=== PATIENT | male | born 1940 | race Caucasian/White ===

== ENCOUNTER 2017-02-19 14:03 | Inpatient (IN) | payer MEDICARE, BC ==
[2017-02-19 15:10] VITALS: BP 136/75
[2017-02-19] MEDS ORDERED: Maalox 30 mL Cup PO PRN (20:51)
[2017-02-19] MEDS ORDERED: Magnesium Hydroxide (MOM) 30 mL UDC PO PRN (20:51)
[2017-02-20] MEDS: Multivitamin Tab PO SCH (09:00)
--- NOTE | 2017-02-20 11:54 | History and Physical ---
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 Pertinent Hx GI: Report: No Pertinent Hx Psych: Report: Other (Accordint to information in cahrt patient has having this symptoms before.) Musculoskeletal: Report: No Pertinent Hx Rheumatologic: Report: No pertinent Hx Infectious Disease: Report: No Pertinent Hx Renal/: Report: No Pertinent Hx Endocrine: Report: No Pertinent Hx Dermatology: Report: No Pertinent Hx - Past Surgical History Past Surgical History: No pertinent Hx Social History Smoke: No Alcohol: None Drugs: None Lives: With Family Domestic Violence: Negative - Allergies Allergies/Adverse Reactions: Allergies Allergy/AdvReac Type Severity Reaction Status Date / Time No Known Allergies Allergy Verified 02/19/17 15:10 Review of Systems - Review of Systems Constitutional: Report: No Significant Eyes: Report: No Significant ENT: Report: No Significant Respiratory: Report: No Significant Cardiovascular: Report: No Significant Gastrointestinal: Report: No Significant Genitourinary: Report: No Significant Musculoskeletal: Report: No Significant Skin: Report: No Significant Neurological: Report: No Significant Physical Exam - Physical Exam HEENT: Report: Ears Nose Throat within normal limits Neck: Report: Within normal limits Cardiovascular Systems: Report: Regular, Rate and Rhythm Respiratory: Report: Breath Sounds are within normal limits Abdomen: Report: Non-tender to palpation Back: Report: Inspection of back is within normal limits. Extremities: Report: Non-tender to palpation. Skin: Report: Warm, Dry, Other (There are 2 small cuts in left hand and scoriation in left elbow. ) Neuro/Psych: Report: Disoriented to name time or place, Depressed affect - Lab Results All Lab Results last 24 hours: Laboratory Results - last 24 hr 02/19/17 15:56 POC Glucose 100 - Assessment Assessment: Patient is awake, alert, confused, not oriented. Dx; Suicidal ideation - Plan Plan: Patient is under psychiatric care. Labs will be done.
[2017-02-21 06:56] LABS: % BASOPHILS 0.5 % (0.0-2.0); % EOSINOPHILS 0.9 % (0.0-5.0); % MONOCYTES 10.9 % (2.0-10.0); % NEUTROPHILS 74.7 % (40.0-80.0); HEMATOCRIT 45.6 % (41.0-60); MEAN CELL VOLUME 96.2 fl (80-99); MEAN CORPUSCULAR HEMOGLOBIN 31.7 pg (27.0-31.0); NEUTROPHILE ABSOLUTE 7.6 Th/cmm (1.8-8.0); PLATELET COUNT 162 Th/cmm (150-400); RED BLOOD COUNT 4.73 Mil/cmm (3.80-5.80); RED CELL DISTRIBUTION WIDTH 13.2 % (11.5-20.0); WHITE BLOOD COUNT 10.2 Th/cmm (4.8-10.8)
[2017-02-21 07:13] LABS: ALB/GLOB RATIO 1.7 (1.0-1.8); ALKALINE PHOSPHATASE 56 U/L (34-104); ANION GAP 7.2 (7.0-16.0); BUN - UREA NITROGEN 15 mg/dL (7-25); BUN/CREATININE RATIO 18.8; CALCIUM SERUM 9.8 mg/dL (8.6-10.3); CARBON DIOXIDE 31.8 mEq/L (21.0-31.0); CHLORIDE 103 mEq/L (98-107); CREATININE - SERUM 0.8 mg/dL (0.7-1.3); GLUCOSE 104 mg/dL (70-105); SGOT 22 U/L (13-39); SGPT/ALT 11 U/L (7-52); SODIUM SERUM 138 mEq/L (136-145)
[2017-02-21] MEDS: Multivitamin Tab PO SCH (08:47)
--- NOTE | 2017-02-21 09:09 | General Progress Note ---
Subjective - Review of Systems Service Date: 02/21/17 Subjective: I am fine Objective - Results Result Diagrams: 02/21/17 06:35 02/21/17 06:35 Recent Labs: Laboratory Last Values WBC 10.2 Th/cmm (4.8-10.8) 02/21/17 06:35 RBC 4.73 Mil/cmm (3.80-5.80) 02/21/17 06:35 Hgb 15.0 gm/dL (12-16) 02/21/17 06:35 Hct 45.6 % (41.0-60) 02/21/17 06:35 MCV 96.2 fl (80-99) 02/21/17 06:35 MCH 31.7 pg (27.0-31.0) H 02/21/17 06:35 MCHC Differential 33.0 pg (28.0-36.0) 02/21/17 06:35 RDW 13.2 % (11.5-20.0) 02/21/17 06:35 Plt Count 162 Th/cmm (150-400) 02/21/17 06:35 MPV 9.0 fl 02/21/17 06:35 Neutrophils % 74.7 % (40.0-80.0) 02/21/17 06:35 Lymphocytes % 13.0 % (20.0-50.0) L 02/21/17 06:35 Monocytes % 10.9 % (2.0-10.0) H 02/21/17 06:35 Eosinophils % 0.9 % (0.0-5.0) 02/21/17 06:35 Basophils % 0.5 % (0.0-2.0) 02/21/17 06:35 Sodium 138 mEq/L (136-145) 02/21/17 06:35 Potassium 4.0 mEq/L (3.5-5.1) 02/21/17 06:35 Chloride 103 mEq/L (98-107) 02/21/17 06:35 Carbon Dioxide 31.8 mEq/L (21.0-31.0) H 02/21/17 06:35 Anion Gap 7.2 (7.0-16.0) 02/21/17 06:35 BUN 15 mg/dL (7-25) 02/21/17 06:35 Creatinine 0.8 mg/dL (0.7-1.3) 02/21/17 06:35 Est GFR ( Amer) TNP 02/21/17 06:35 Est GFR (Non-Af Amer) TNP 02/21/17 06:35 BUN/Creatinine Ratio 18.8 02/21/17 06:35 Glucose 104 mg/dL (70-105) 02/21/17 06:35 POC Glucose 100 MG/DL (70 - 105) 02/19/17 15:56 Calcium 9.8 mg/dL (8.6-10.3) 02/21/17 06:35 Total Bilirubin 1.0 mg/dL (0.3-1.0) 02/21/17 06:35 AST 22 U/L (13-39) 02/21/17 06:35 ALT 11 U/L (7-52) 02/21/17 06:35 Alkaline Phosphatase 56 U/L (34-104) 02/21/17 06:35 Total Protein 6.7 gm/dL (6.0-8.3) 02/21/17 06:35 Albumin 4.2 gm/dL (4.2-5.5) 02/21/17 06:35 Globulin 2.5 gm/dL 02/21/17 06:35 Albumin/Globulin Ratio 1.7 (1.0-1.8) 02/21/17 06:35 TSH 2.19 uIU/ml (0.34-5.60) 02/21/17 06:35 - Physical Exam Vitals and I&O: Vital Signs Temp 98.2 F 02/21/17 07:05 Pulse 89 02/21/17 07:05 Resp 20 02/21/17 07:05 BP 132/83 02/21/17 07:05 Pulse Ox 99 02/21/17 07:05 Intake & Output 02/20/17 02/21/17 02/21/17 18:59 06:59 18:59 Intake Total 1200 120 Balance 1200 120 Intake: Oral 1200 120 Other: # Voids 3 # Bowel Movements 1 Active Medications: Current Medications Acetaminophen (Tylenol) 650 mg PO Q4HR PRN PRN Reason: Mild Pain / Temp above 100 Stop: 04/20/17 20:50 Al Hydrox/Mg Hydrox/Simethicone (Maalox) 30 ml PO Q4HR PRN PRN Reason: GI DISTRESS Stop: 04/20/17 20:50 Donepezil HCl (Aricept) 10 mg PO HS PATY Stop: 04/21/17 20:59 Last Admin: 02/20/17 20:50 Dose: 10 mg Escitalopram Oxalate (Lexapro) 10 mg PO DAILY PATY PRN Reason: Protocol Stop: 04/21/17 12:59 Last Admin: 02/21/17 08:47 Dose: 10 mg Lorazepam (Ativan) 0.5 mg PO Q4HR PRN; Protocol PRN Reason: Anxiety Stop: 03/21/17 20:50 Last Admin: 02/20/17 13:09 Dose: 0.5 mg Magnesium Hydroxide (Milk Of Magnesia) 30 ml PO HS PRN PRN Reason: Constipation Multivitamins/Vitamin C (Theragran) 1 tab PO DAILY PATY Stop: 04/21/17 08:59 Last Admin: 02/21/17 08:47 Dose: 1 tab Zolpidem Tartrate (Ambien) 5 mg PO HS PRN PRN Reason: Insomnia Stop: 04/20/17 20:50 General: Alert, Other (confused) HEENT: Atraumatic Neck: Supple Cardiovascular: Regular rate Lungs: Clear to auscultation Abdomen: Bowel sounds, Soft Extremities: Other (No edema) Neurological: Normal gait Skin: Other (warm and ) Psych/Mental Status: Other (Confused not oriented) Assessment/Plan - Assessment Assessment: Patient is awake, alert, confused, not oriented. Dx; Suicidal ideation - Plan Plan: Patient is under psychiatric care. Labs will be done.
--- NOTE | 2017-02-21 16:49 | Psychosocial Evaluation ---
DATE OF SERVICE: JUSTIFICATION FOR HOSPITALIZATION: The patient brought in on a hold, acting aggressively, making threats to kill . CHIEF COMPLAINT: Psychotic decompensation, aggressive behaviors. HISTORY OF PRESENT ILLNESS: A 76-year-old male with apparent history of mental illness, noted to be aggressive, acting strangely, making threats to kill . concerned, called authorities. He was also noted to be suicidal, making statements and threats to cut his own throat. On [id number], the patient is staring blankly, mute, and not speaking with me whatsoever. Staff noting he appears confused, at times noted to be responding to internal stimuli. PAST PSYCHIATRIC HISTORY: Unknown. The patient refusing to speak with me. FAMILY HISTORY: Unknown. The patient refusing to speak with me. SOCIAL HISTORY: Apparently he is , is unclear what his living circumstances are. He has an address in [place], [place]. Unclear drugs, alcohol, or tobacco. MENTAL STATUS EXAMINATION: Stated age, staring blankly, not talking. Mood not answering. Affect flat. Thought processes difficult to assess. Thought content, difficult to assess. Appearing internally preoccupied. He was noted to be suicidal and homicidal. Memory unable to assess. Psychotic symptoms, difficult to fully assess. Poor insight, poor judgment. PROVISIONAL DIAGNOSES: Psychosis, unspecified and mood, unspecified. Under medical, please see full H and P. MEDICATIONS: Reviewed. ESTIMATED LENGTH OF STAY: 5-7 days. ASSESSMENT: The patient requiring inpatient hospitalization, aggressive suicidal or homicidal. PLAN: We will try to increase collateral. TREATMENT PLAN: Includes group as well as milieu therapy. CONDITIONS FOR DISCHARGE: Improved mood, improved affect, better control of his homicidal and suicidal symptoms, better control of any psychotic symptoms. [facility]# [id number]
[2017-02-22] MEDS: Multivitamin Tab PO SCH (08:48)
--- NOTE | 2017-02-22 10:19 | General Progress Note ---
Subjective - Review of Systems Service Date: 02/22/17 Subjective: I am fine Objective - Results Result Diagrams: 02/21/17 06:35 02/21/17 06:35 Recent Labs: Laboratory Last Values WBC 10.2 Th/cmm (4.8-10.8) 02/21/17 06:35 RBC 4.73 Mil/cmm (3.80-5.80) 02/21/17 06:35 Hgb 15.0 gm/dL (12-16) 02/21/17 06:35 Hct 45.6 % (41.0-60) 02/21/17 06:35 MCV 96.2 fl (80-99) 02/21/17 06:35 MCH 31.7 pg (27.0-31.0) H 02/21/17 06:35 MCHC Differential 33.0 pg (28.0-36.0) 02/21/17 06:35 RDW 13.2 % (11.5-20.0) 02/21/17 06:35 Plt Count 162 Th/cmm (150-400) 02/21/17 06:35 MPV 9.0 fl 02/21/17 06:35 Neutrophils % 74.7 % (40.0-80.0) 02/21/17 06:35 Lymphocytes % 13.0 % (20.0-50.0) L 02/21/17 06:35 Monocytes % 10.9 % (2.0-10.0) H 02/21/17 06:35 Eosinophils % 0.9 % (0.0-5.0) 02/21/17 06:35 Basophils % 0.5 % (0.0-2.0) 02/21/17 06:35 Sodium 138 mEq/L (136-145) 02/21/17 06:35 Potassium 4.0 mEq/L (3.5-5.1) 02/21/17 06:35 Chloride 103 mEq/L (98-107) 02/21/17 06:35 Carbon Dioxide 31.8 mEq/L (21.0-31.0) H 02/21/17 06:35 Anion Gap 7.2 (7.0-16.0) 02/21/17 06:35 BUN 15 mg/dL (7-25) 02/21/17 06:35 Creatinine 0.8 mg/dL (0.7-1.3) 02/21/17 06:35 Est GFR ( Amer) TNP 02/21/17 06:35 Est GFR (Non-Af Amer) TNP 02/21/17 06:35 BUN/Creatinine Ratio 18.8 02/21/17 06:35 Glucose 104 mg/dL (70-105) 02/21/17 06:35 POC Glucose 100 MG/DL (70 - 105) 02/19/17 15:56 Calcium 9.8 mg/dL (8.6-10.3) 02/21/17 06:35 Total Bilirubin 1.0 mg/dL (0.3-1.0) 02/21/17 06:35 AST 22 U/L (13-39) 02/21/17 06:35 ALT 11 U/L (7-52) 02/21/17 06:35 Alkaline Phosphatase 56 U/L (34-104) 02/21/17 06:35 Total Protein 6.7 gm/dL (6.0-8.3) 02/21/17 06:35 Albumin 4.2 gm/dL (4.2-5.5) 02/21/17 06:35 Globulin 2.5 gm/dL 02/21/17 06:35 Albumin/Globulin Ratio 1.7 (1.0-1.8) 02/21/17 06:35 TSH 2.19 uIU/ml (0.34-5.60) 02/21/17 06:35 - Physical Exam Vitals and I&O: Vital Signs Temp 97.8 F 02/22/17 06:48 Pulse 90 02/22/17 06:48 Resp 18 02/22/17 06:48 BP 114/72 02/22/17 06:48 Pulse Ox 97 02/22/17 06:48 Intake & Output 02/21/17 02/22/17 02/22/17 18:59 06:59 18:59 Intake Total 1720 120 Balance 1720 120 Intake: Oral 1720 120 Other: # Voids 4 3 # Bowel Movements 0 Active Medications: Current Medications Acetaminophen (Tylenol) 650 mg PO Q4HR PRN PRN Reason: Mild Pain / Temp above 100 Stop: 04/20/17 20:50 Al Hydrox/Mg Hydrox/Simethicone (Maalox) 30 ml PO Q4HR PRN PRN Reason: GI DISTRESS Stop: 04/20/17 20:50 Donepezil HCl (Aricept) 10 mg PO HS PATY Stop: 04/21/17 20:59 Last Admin: 02/21/17 21:06 Dose: 10 mg Escitalopram Oxalate (Lexapro) 10 mg PO DAILY PATY PRN Reason: Protocol Stop: 04/21/17 12:59 Last Admin: 02/22/17 08:48 Dose: 10 mg Lorazepam (Ativan) 0.5 mg PO Q4HR PRN; Protocol PRN Reason: Anxiety Stop: 03/21/17 20:50 Last Admin: 02/22/17 08:48 Dose: 0.5 mg Magnesium Hydroxide (Milk Of Magnesia) 30 ml PO HS PRN PRN Reason: Constipation Multivitamins/Vitamin C (Theragran) 1 tab PO DAILY PATY Stop: 04/21/17 08:59 Last Admin: 02/22/17 08:48 Dose: 1 tab Zolpidem Tartrate (Ambien) 5 mg PO HS PRN PRN Reason: Insomnia Stop: 04/20/17 20:50 General: Alert, Other (confused) HEENT: Atraumatic Neck: Supple Cardiovascular: Regular rate Lungs: Clear to auscultation Abdomen: Bowel sounds, Soft Extremities: Other (No edema) Neurological: Normal gait Skin: Other (warm and ) Psych/Mental Status: Other (Confused not oriented) Assessment/Plan - Assessment Assessment: Patient is awake, alert, confused, not oriented. Dx; Suicidal ideation - Plan Plan: Patient is under psychiatric care. Labs will be done.
--- NOTE | 2017-02-22 15:32 | Progress Notes ---
DATE: SUBJECTIVE: The patient is currently in the hospital, suicidal, homicidal, placed on a hold, on [id number]. He is crying uncontrollably, very tearful "My left me," convinced his left him. I spoke with the today. She is very concerned about him and wants him actually closer to him and wants him out of the hospital [facility]. Apparently, the patient has been declining over the past couple of weeks. Memory worsening over time. Behaviors are becoming more erratic, unruly. He has also been falling. He sees a neurologist. notes he was recently diagnosed with dementia, very difficult to have a reasonable conversation with the patient, he is still fixated about his leaving him, guarded about any SI, but he is being placed on suicide watch at this time because he appears so desperate, hopeless, and is crying uncontrollably. Sleeping fairly well. Needing some prompting. ASSESSMENT: The patient remains symptomatic, crying uncontrollably. Currently on a suicide watch. Staff is moving him to a closer room to the nursing station. PLAN: We will continue to monitor. The patient seems to be confused, disoriented, and there are safety concerns. We will initiate a 14-day hold. Given his ongoing symptoms, there are continued safety concerns. JOB# [id number]
[2017-02-23] MEDS: Multivitamin Tab PO SCH (08:19)
--- NOTE | 2017-02-23 10:48 | General Progress Note ---
Subjective - Review of Systems Service Date: 02/23/17 Subjective: I am fine Objective - Results Result Diagrams: 02/21/17 06:35 02/21/17 06:35 Recent Labs: Laboratory Last Values WBC 10.2 Th/cmm (4.8-10.8) 02/21/17 06:35 RBC 4.73 Mil/cmm (3.80-5.80) 02/21/17 06:35 Hgb 15.0 gm/dL (12-16) 02/21/17 06:35 Hct 45.6 % (41.0-60) 02/21/17 06:35 MCV 96.2 fl (80-99) 02/21/17 06:35 MCH 31.7 pg (27.0-31.0) H 02/21/17 06:35 MCHC Differential 33.0 pg (28.0-36.0) 02/21/17 06:35 RDW 13.2 % (11.5-20.0) 02/21/17 06:35 Plt Count 162 Th/cmm (150-400) 02/21/17 06:35 MPV 9.0 fl 02/21/17 06:35 Neutrophils % 74.7 % (40.0-80.0) 02/21/17 06:35 Lymphocytes % 13.0 % (20.0-50.0) L 02/21/17 06:35 Monocytes % 10.9 % (2.0-10.0) H 02/21/17 06:35 Eosinophils % 0.9 % (0.0-5.0) 02/21/17 06:35 Basophils % 0.5 % (0.0-2.0) 02/21/17 06:35 Sodium 138 mEq/L (136-145) 02/21/17 06:35 Potassium 4.0 mEq/L (3.5-5.1) 02/21/17 06:35 Chloride 103 mEq/L (98-107) 02/21/17 06:35 Carbon Dioxide 31.8 mEq/L (21.0-31.0) H 02/21/17 06:35 Anion Gap 7.2 (7.0-16.0) 02/21/17 06:35 BUN 15 mg/dL (7-25) 02/21/17 06:35 Creatinine 0.8 mg/dL (0.7-1.3) 02/21/17 06:35 Est GFR ( Amer) TNP 02/21/17 06:35 Est GFR (Non-Af Amer) TNP 02/21/17 06:35 BUN/Creatinine Ratio 18.8 02/21/17 06:35 Glucose 104 mg/dL (70-105) 02/21/17 06:35 POC Glucose 100 MG/DL (70 - 105) 02/19/17 15:56 Calcium 9.8 mg/dL (8.6-10.3) 02/21/17 06:35 Total Bilirubin 1.0 mg/dL (0.3-1.0) 02/21/17 06:35 AST 22 U/L (13-39) 02/21/17 06:35 ALT 11 U/L (7-52) 02/21/17 06:35 Alkaline Phosphatase 56 U/L (34-104) 02/21/17 06:35 Total Protein 6.7 gm/dL (6.0-8.3) 02/21/17 06:35 Albumin 4.2 gm/dL (4.2-5.5) 02/21/17 06:35 Globulin 2.5 gm/dL 02/21/17 06:35 Albumin/Globulin Ratio 1.7 (1.0-1.8) 02/21/17 06:35 TSH 2.19 uIU/ml (0.34-5.60) 02/21/17 06:35 - Physical Exam Vitals and I&O: Vital Signs Temp 98.1 F 02/23/17 06:44 Pulse 85 02/23/17 06:44 Resp 20 02/23/17 06:44 BP 130/87 02/23/17 06:44 Pulse Ox 97 02/23/17 06:44 Intake & Output 02/22/17 02/23/17 02/23/17 18:59 06:59 18:59 Intake Total 800 120 Balance 800 120 Intake: Oral 800 120 Other: # Voids 3 3 # Bowel Movements 1 Active Medications: Current Medications Acetaminophen (Tylenol) 650 mg PO Q4HR PRN PRN Reason: Mild Pain / Temp above 100 Stop: 04/20/17 20:50 Al Hydrox/Mg Hydrox/Simethicone (Maalox) 30 ml PO Q4HR PRN PRN Reason: GI DISTRESS Stop: 04/20/17 20:50 Donepezil HCl (Aricept) 10 mg PO HS PATY Stop: 04/21/17 20:59 Last Admin: 02/22/17 21:00 Dose: 10 mg Escitalopram Oxalate (Lexapro) 10 mg PO DAILY PATY PRN Reason: Protocol Stop: 04/21/17 12:59 Last Admin: 02/23/17 08:19 Dose: 10 mg Lorazepam (Ativan) 0.5 mg PO Q4HR PRN; Protocol PRN Reason: Anxiety Stop: 03/21/17 20:50 Last Admin: 02/23/17 08:20 Dose: 0.5 mg Magnesium Hydroxide (Milk Of Magnesia) 30 ml PO HS PRN PRN Reason: Constipation Multivitamins/Vitamin C (Theragran) 1 tab PO DAILY PATY Stop: 04/21/17 08:59 Last Admin: 02/23/17 08:19 Dose: 1 tab Zolpidem Tartrate (Ambien) 5 mg PO HS PRN PRN Reason: Insomnia Stop: 04/20/17 20:50 General: Alert, Other (confused) HEENT: Atraumatic Neck: Supple Cardiovascular: Regular rate Lungs: Clear to auscultation Abdomen: Bowel sounds, Soft Extremities: Other (No edema) Neurological: Normal gait Skin: Other (warm and ) Psych/Mental Status: Other (Confused not oriented) Assessment/Plan - Assessment Assessment: Patient is awake, alert, confused, not oriented. Dx; Suicidal ideation - Plan Plan: Patient is under psychiatric care. Will continue to monitor.
--- NOTE | 2017-02-23 14:26 | Progress Notes ---
DATE: 02/22/2017 SUBJECTIVE: The patient seen, chart reviewed, discussed with staff. The patient remains symptomatic, confused, and disoriented. He states he is here for unclear reasons, stating that he wants to kick somebody in the balls, but states he is stopping himself. He is really not making any sense, recent diagnosis of dementia. Still concerns, there was some crying episodes. He was on suicide watch yesterday because he appeared so desperate, hopeless, and despairing. Sleeping well, needing some prompting and redirection, currently on a hold. ASSESSMENT: The patient remains symptomatic, disoriented, and labile. PLAN: We will continue to monitor. Continue 14-day hold. The patient has placement, but there are continued safety concerns. JOB# [id number]
--- NOTE | 2017-02-24 02:36 | Progress Notes ---
DATE: 02/23/[address] Singer. Case was discussed with staff of the patient, reviewed records. This is a 76-year-old male who was admitted on the 02/19/2017 because of aggressive behavior with a history of mental illness, acting strangely, making threats to kill his . was concerned, called authorities. He was also suicidal, making statements and threats to cut his own throat. The patient was staring blankly, mute, not speaking with me whatsoever. Staff notes he was confused at times, ____ responding to internal stimuli. The patient has been on View3 chair. Apparently, they have to take him off the group room because of his inappropriate behavior. The patient has been on Aricept 10 mg at bedtime and Lexapro 10 mg daily. He is still confused, unable to make safe plan for self-care, unpredictable, impulsive, needing redirection. We will continue to work with the patient in group therapy, milieu therapy, adjust medications as needed. JOB# [id number]
[2017-02-24] MEDS: Multivitamin Tab PO SCH (09:13)
--- NOTE | 2017-02-24 09:31 | General Progress Note ---
Subjective - Review of Systems Service Date: 02/24/17 Subjective: I am fine Objective - Results Result Diagrams: 02/21/17 06:35 02/21/17 06:35 Recent Labs: Laboratory Last Values WBC 10.2 Th/cmm (4.8-10.8) 02/21/17 06:35 RBC 4.73 Mil/cmm (3.80-5.80) 02/21/17 06:35 Hgb 15.0 gm/dL (12-16) 02/21/17 06:35 Hct 45.6 % (41.0-60) 02/21/17 06:35 MCV 96.2 fl (80-99) 02/21/17 06:35 MCH 31.7 pg (27.0-31.0) H 02/21/17 06:35 MCHC Differential 33.0 pg (28.0-36.0) 02/21/17 06:35 RDW 13.2 % (11.5-20.0) 02/21/17 06:35 Plt Count 162 Th/cmm (150-400) 02/21/17 06:35 MPV 9.0 fl 02/21/17 06:35 Neutrophils % 74.7 % (40.0-80.0) 02/21/17 06:35 Lymphocytes % 13.0 % (20.0-50.0) L 02/21/17 06:35 Monocytes % 10.9 % (2.0-10.0) H 02/21/17 06:35 Eosinophils % 0.9 % (0.0-5.0) 02/21/17 06:35 Basophils % 0.5 % (0.0-2.0) 02/21/17 06:35 Sodium 138 mEq/L (136-145) 02/21/17 06:35 Potassium 4.0 mEq/L (3.5-5.1) 02/21/17 06:35 Chloride 103 mEq/L (98-107) 02/21/17 06:35 Carbon Dioxide 31.8 mEq/L (21.0-31.0) H 02/21/17 06:35 Anion Gap 7.2 (7.0-16.0) 02/21/17 06:35 BUN 15 mg/dL (7-25) 02/21/17 06:35 Creatinine 0.8 mg/dL (0.7-1.3) 02/21/17 06:35 Est GFR ( Amer) TNP 02/21/17 06:35 Est GFR (Non-Af Amer) TNP 02/21/17 06:35 BUN/Creatinine Ratio 18.8 02/21/17 06:35 Glucose 104 mg/dL (70-105) 02/21/17 06:35 POC Glucose 100 MG/DL (70 - 105) 02/19/17 15:56 Calcium 9.8 mg/dL (8.6-10.3) 02/21/17 06:35 Total Bilirubin 1.0 mg/dL (0.3-1.0) 02/21/17 06:35 AST 22 U/L (13-39) 02/21/17 06:35 ALT 11 U/L (7-52) 02/21/17 06:35 Alkaline Phosphatase 56 U/L (34-104) 02/21/17 06:35 Total Protein 6.7 gm/dL (6.0-8.3) 02/21/17 06:35 Albumin 4.2 gm/dL (4.2-5.5) 02/21/17 06:35 Globulin 2.5 gm/dL 02/21/17 06:35 Albumin/Globulin Ratio 1.7 (1.0-1.8) 02/21/17 06:35 TSH 2.19 uIU/ml (0.34-5.60) 02/21/17 06:35 - Physical Exam Vitals and I&O: Vital Signs Temp 98.1 F 02/24/17 06:43 Pulse 86 02/24/17 06:43 Resp 19 02/24/17 06:43 BP 118/66 02/24/17 06:43 Pulse Ox 97 02/24/17 06:43 Intake & Output 02/23/17 02/24/17 02/24/17 18:59 06:59 18:59 Intake Total 500 480 Balance 500 480 Intake: Oral 500 480 Other: # Voids 3 1 # Bowel Movements 1 Active Medications: Current Medications Acetaminophen (Tylenol) 650 mg PO Q4HR PRN PRN Reason: Mild Pain / Temp above 100 Stop: 04/20/17 20:50 Al Hydrox/Mg Hydrox/Simethicone (Maalox) 30 ml PO Q4HR PRN PRN Reason: GI DISTRESS Stop: 04/20/17 20:50 Donepezil HCl (Aricept) 10 mg PO HS PATY Stop: 04/21/17 20:59 Last Admin: 02/23/17 21:01 Dose: 10 mg Escitalopram Oxalate (Lexapro) 10 mg PO DAILY PATY PRN Reason: Protocol Stop: 04/21/17 12:59 Last Admin: 02/24/17 09:13 Dose: 10 mg Lorazepam (Ativan) 0.5 mg PO Q4HR PRN; Protocol PRN Reason: Anxiety Stop: 03/21/17 20:50 Last Admin: 02/24/17 09:13 Dose: 0.5 mg Multivitamins/Vitamin C (Theragran) 1 tab PO DAILY PATY Stop: 04/21/17 08:59 Last Admin: 02/24/17 09:13 Dose: 1 tab Zolpidem Tartrate (Ambien) 5 mg PO HS PRN PRN Reason: Insomnia Stop: 04/20/17 20:50 Last Admin: 02/23/17 21:01 Dose: 5 mg General: Alert, Other (confused) HEENT: Atraumatic Neck: Supple Cardiovascular: Regular rate Lungs: Clear to auscultation Abdomen: Bowel sounds, Soft Extremities: Other (No edema) Neurological: Normal gait Skin: Other (warm and ) Psych/Mental Status: Other (Confused not oriented) Assessment/Plan - Assessment Assessment: Patient is awake, alert, confused, not oriented. Dx; Suicidal ideation - Plan Plan: Patient is under psychiatric care. Will continue to monitor.
--- NOTE | 2017-02-25 02:00 | Progress Notes ---
DATE: 02/24/[address] Singer. Case was discussed with staff of the patient, reviewed records. The patient continues to be confused and needing redirection. He is very repetitive, unable to participate meaningful conversations, can remember things. He followed me today wanting to be shaved. He would not respond to my redirections. He is very confused, unpredictable and impulsive. He is compliant with the medication. Irritable, low, getting easily upset and no side effects from the medication, no sedation, no nausea, no extrapyramidal symptoms. We will continue to work with the patient in group therapy, milieu therapy, adjust medications as needed. JOB# [id number]
[2017-02-25] MEDS: Multivitamin Tab PO SCH (08:54)
--- NOTE | 2017-02-25 08:55 | General Progress Note ---
Subjective - Review of Systems Service Date: 02/25/17 Subjective: I am fine Objective - Results Result Diagrams: 02/21/17 06:35 02/21/17 06:35 Recent Labs: Laboratory Last Values WBC 10.2 Th/cmm (4.8-10.8) 02/21/17 06:35 RBC 4.73 Mil/cmm (3.80-5.80) 02/21/17 06:35 Hgb 15.0 gm/dL (12-16) 02/21/17 06:35 Hct 45.6 % (41.0-60) 02/21/17 06:35 MCV 96.2 fl (80-99) 02/21/17 06:35 MCH 31.7 pg (27.0-31.0) H 02/21/17 06:35 MCHC Differential 33.0 pg (28.0-36.0) 02/21/17 06:35 RDW 13.2 % (11.5-20.0) 02/21/17 06:35 Plt Count 162 Th/cmm (150-400) 02/21/17 06:35 MPV 9.0 fl 02/21/17 06:35 Neutrophils % 74.7 % (40.0-80.0) 02/21/17 06:35 Lymphocytes % 13.0 % (20.0-50.0) L 02/21/17 06:35 Monocytes % 10.9 % (2.0-10.0) H 02/21/17 06:35 Eosinophils % 0.9 % (0.0-5.0) 02/21/17 06:35 Basophils % 0.5 % (0.0-2.0) 02/21/17 06:35 Sodium 138 mEq/L (136-145) 02/21/17 06:35 Potassium 4.0 mEq/L (3.5-5.1) 02/21/17 06:35 Chloride 103 mEq/L (98-107) 02/21/17 06:35 Carbon Dioxide 31.8 mEq/L (21.0-31.0) H 02/21/17 06:35 Anion Gap 7.2 (7.0-16.0) 02/21/17 06:35 BUN 15 mg/dL (7-25) 02/21/17 06:35 Creatinine 0.8 mg/dL (0.7-1.3) 02/21/17 06:35 Est GFR ( Amer) TNP 02/21/17 06:35 Est GFR (Non-Af Amer) TNP 02/21/17 06:35 BUN/Creatinine Ratio 18.8 02/21/17 06:35 Glucose 104 mg/dL (70-105) 02/21/17 06:35 POC Glucose 100 MG/DL (70 - 105) 02/19/17 15:56 Calcium 9.8 mg/dL (8.6-10.3) 02/21/17 06:35 Total Bilirubin 1.0 mg/dL (0.3-1.0) 02/21/17 06:35 AST 22 U/L (13-39) 02/21/17 06:35 ALT 11 U/L (7-52) 02/21/17 06:35 Alkaline Phosphatase 56 U/L (34-104) 02/21/17 06:35 Total Protein 6.7 gm/dL (6.0-8.3) 02/21/17 06:35 Albumin 4.2 gm/dL (4.2-5.5) 02/21/17 06:35 Globulin 2.5 gm/dL 02/21/17 06:35 Albumin/Globulin Ratio 1.7 (1.0-1.8) 02/21/17 06:35 TSH 2.19 uIU/ml (0.34-5.60) 02/21/17 06:35 - Physical Exam Vitals and I&O: Vital Signs Temp 97.7 F 02/25/17 06:53 Pulse 81 02/25/17 06:53 Resp 17 02/25/17 06:53 BP 124/78 02/25/17 06:53 Pulse Ox 98 02/25/17 06:53 Intake & Output 02/24/17 02/25/17 02/25/17 18:59 06:59 18:59 Intake Total 500 240 Balance 500 240 Intake: Oral 500 240 Other: # Voids 3 2 # Bowel Movements 1 Active Medications: Current Medications Acetaminophen (Tylenol) 650 mg PO Q4HR PRN PRN Reason: Mild Pain / Temp above 100 Stop: 04/20/17 20:50 Al Hydrox/Mg Hydrox/Simethicone (Maalox) 30 ml PO Q4HR PRN PRN Reason: GI DISTRESS Stop: 04/20/17 20:50 Donepezil HCl (Aricept) 10 mg PO HS PATY Stop: 04/21/17 20:59 Last Admin: 02/24/17 20:56 Dose: 10 mg Escitalopram Oxalate (Lexapro) 10 mg PO DAILY PATY PRN Reason: Protocol Stop: 04/21/17 12:59 Last Admin: 02/24/17 09:13 Dose: 10 mg Lorazepam (Ativan) 0.5 mg PO Q4HR PRN; Protocol PRN Reason: Anxiety Stop: 03/21/17 20:50 Last Admin: 02/24/17 14:35 Dose: 0.5 mg Multivitamins/Vitamin C (Theragran) 1 tab PO DAILY PATY Stop: 04/21/17 08:59 Last Admin: 02/24/17 09:13 Dose: 1 tab Zolpidem Tartrate (Ambien) 5 mg PO HS PRN PRN Reason: Insomnia Stop: 04/20/17 20:50 Last Admin: 02/24/17 20:56 Dose: 5 mg General: Alert, Other (confused) HEENT: Atraumatic Neck: Supple Cardiovascular: Regular rate Lungs: Clear to auscultation Abdomen: Bowel sounds, Soft Extremities: Other (No edema) Neurological: Normal gait Skin: Other (warm and ) Psych/Mental Status: Other (Confused not oriented) Assessment/Plan - Assessment Assessment: Patient is awake, alert, confused, not oriented. Dx; Suicidal ideation - Plan Plan: Patient is under psychiatric care. Will continue to monitor.
[2017-02-26] MEDS: Multivitamin Tab PO SCH (08:15)
--- NOTE | 2017-02-26 12:15 | Progress Notes ---
DATE: SUBJECTIVE: The patient seen, chart reviewed, discussed with staff. The patient seems to be improving. He does remain confused, disoriented, tangential, still needing some redirection, but he is denying any SI, no HI. He is no longer is unpredictable and impulsive, less irritable, no dangerousness noted. He does not want to hurt himself. He does not want to hurt anybody else. He starts to tell me about the decorations in his home. Medications were reviewed, no overt side effects. I did speak with the last week. ASSESSMENT: The patient is still confused, but symptoms abating and resolving, improvement noted, more redirectable, no agitation. PLAN: We will continue to monitor pending placement for tomorrow. JOB# [id number]
--- NOTE | 2017-02-26 12:47 | General Progress Note ---
Subjective - Review of Systems Service Date: 02/26/17 Subjective: I am fine Objective - Results Result Diagrams: 02/21/17 06:35 02/21/17 06:35 Recent Labs: Laboratory Last Values WBC 10.2 Th/cmm (4.8-10.8) 02/21/17 06:35 RBC 4.73 Mil/cmm (3.80-5.80) 02/21/17 06:35 Hgb 15.0 gm/dL (12-16) 02/21/17 06:35 Hct 45.6 % (41.0-60) 02/21/17 06:35 MCV 96.2 fl (80-99) 02/21/17 06:35 MCH 31.7 pg (27.0-31.0) H 02/21/17 06:35 MCHC Differential 33.0 pg (28.0-36.0) 02/21/17 06:35 RDW 13.2 % (11.5-20.0) 02/21/17 06:35 Plt Count 162 Th/cmm (150-400) 02/21/17 06:35 MPV 9.0 fl 02/21/17 06:35 Neutrophils % 74.7 % (40.0-80.0) 02/21/17 06:35 Lymphocytes % 13.0 % (20.0-50.0) L 02/21/17 06:35 Monocytes % 10.9 % (2.0-10.0) H 02/21/17 06:35 Eosinophils % 0.9 % (0.0-5.0) 02/21/17 06:35 Basophils % 0.5 % (0.0-2.0) 02/21/17 06:35 Sodium 138 mEq/L (136-145) 02/21/17 06:35 Potassium 4.0 mEq/L (3.5-5.1) 02/21/17 06:35 Chloride 103 mEq/L (98-107) 02/21/17 06:35 Carbon Dioxide 31.8 mEq/L (21.0-31.0) H 02/21/17 06:35 Anion Gap 7.2 (7.0-16.0) 02/21/17 06:35 BUN 15 mg/dL (7-25) 02/21/17 06:35 Creatinine 0.8 mg/dL (0.7-1.3) 02/21/17 06:35 Est GFR ( Amer) TNP 02/21/17 06:35 Est GFR (Non-Af Amer) TNP 02/21/17 06:35 BUN/Creatinine Ratio 18.8 02/21/17 06:35 Glucose 104 mg/dL (70-105) 02/21/17 06:35 POC Glucose 100 MG/DL (70 - 105) 02/19/17 15:56 Calcium 9.8 mg/dL (8.6-10.3) 02/21/17 06:35 Total Bilirubin 1.0 mg/dL (0.3-1.0) 02/21/17 06:35 AST 22 U/L (13-39) 02/21/17 06:35 ALT 11 U/L (7-52) 02/21/17 06:35 Alkaline Phosphatase 56 U/L (34-104) 02/21/17 06:35 Total Protein 6.7 gm/dL (6.0-8.3) 02/21/17 06:35 Albumin 4.2 gm/dL (4.2-5.5) 02/21/17 06:35 Globulin 2.5 gm/dL 02/21/17 06:35 Albumin/Globulin Ratio 1.7 (1.0-1.8) 02/21/17 06:35 TSH 2.19 uIU/ml (0.34-5.60) 02/21/17 06:35 - Physical Exam Vitals and I&O: Vital Signs Temp 98.1 F 02/26/17 06:31 Pulse 81 02/26/17 06:31 Resp 19 02/26/17 06:31 BP 123/78 02/26/17 06:31 Pulse Ox 98 02/26/17 06:31 Intake & Output 02/25/17 02/26/17 02/26/17 18:59 06:59 18:59 Intake Total 900 240 Balance 900 240 Intake: Oral 900 240 Other: # Voids 4 3 # Bowel Movements 1 0 Active Medications: Current Medications Acetaminophen (Tylenol) 650 mg PO Q4HR PRN PRN Reason: Mild Pain / Temp above 100 Stop: 04/20/17 20:50 Al Hydrox/Mg Hydrox/Simethicone (Maalox) 30 ml PO Q4HR PRN PRN Reason: GI DISTRESS Stop: 04/20/17 20:50 Donepezil HCl (Aricept) 10 mg PO HS PATY Stop: 04/21/17 20:59 Last Admin: 02/25/17 20:49 Dose: 10 mg Escitalopram Oxalate (Lexapro) 10 mg PO DAILY PATY PRN Reason: Protocol Stop: 04/21/17 12:59 Last Admin: 02/26/17 08:15 Dose: 10 mg Lorazepam (Ativan) 0.5 mg PO Q4HR PRN; Protocol PRN Reason: Anxiety Stop: 03/21/17 20:50 Last Admin: 02/26/17 12:13 Dose: 0.5 mg Multivitamins/Vitamin C (Theragran) 1 tab PO DAILY PATY Stop: 04/21/17 08:59 Last Admin: 02/26/17 08:15 Dose: 1 tab Zolpidem Tartrate (Ambien) 5 mg PO HS PRN PRN Reason: Insomnia Stop: 04/20/17 20:50 Last Admin: 02/24/17 20:56 Dose: 5 mg General: Alert, Other (confused) HEENT: Atraumatic Neck: Supple Cardiovascular: Regular rate Lungs: Clear to auscultation Abdomen: Bowel sounds, Soft Extremities: Other (No edema) Neurological: Normal gait Skin: Other (warm and ) Psych/Mental Status: Other (Confused not oriented) Assessment/Plan - Assessment Assessment: Patient is awake, alert, confused, not oriented. Dx; Suicidal ideation - Plan Plan: Patient is under psychiatric care. Will continue to monitor.
--- NOTE | 2017-02-27 00:53 | Discharge Summary ---
DATE OF DISCHARGE: 02/26/2017 JUSTIFICATION FOR HOSPITALIZATION: The patient brought in on a hold acting aggressively making threats to kill . CHIEF COMPLAINT: Psychotic decompensation, aggressive behaviors. HISTORY OF PRESENT ILLNESS: A 76-year-old male with apparent history of mental illness, noted to be aggressive, acting strangely, more confused. I spoke with the but he has been deteriorating and very upset about his dementia diagnosis and more confused. The patient with crying episodes. PAST PSYCHIATRIC HISTORY: None. It seems there is an ongoing dementia, but no suicide history per the . SOCIAL HISTORY: He is . He has been living at home. 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 MENTAL STATUS EXAMINATION: Please see full psych eval for details. PROVISIONAL DIAGNOSES: Psychosis, unspecified; mood, unspecified. MEDICAL: Please see full H and P. MEDICATIONS: Noted. HOSPITAL COURSE: After initial assessment, I did get in touch with the . I increase collateral. He has no history of violence or aggressive behaviors. He has no suicide history. Per the , he has never struck anybody before, but sometimes gets mad. Over the course of the hospitalization, he did improve, his mood improved, affect improved, getting along much better with staff and peers. No aggressive episodes. The patient at times noted to be crying, very upset. Towards the latter end of his hospitalization, he was no longer symptomatic. He was redirectable, at times getting angry and upset, but no lashing out behaviors. He was frustrated because he was really confused and seems to have some awareness of his confusional state. was intent on him, believing and being stepped down to a nursing home facility and on 02/26/2017 he was no longer symptomatic. He was not suicidal. He is not homicidal, and he was discharged. CONDITION UPON DISCHARGE: Improved. Fair attention, ADLs. Fair eye contact. Speech, decreased content. Mood "okay." Affect flat. Thought processes remain somewhat disoriented. No SI, no HI, no psychotic symptoms. Insight and judgment seem better, impulse control, better. The patient hopeful to see his soon. DISCHARGE DIAGNOSES: Dementia, mood, unspecified. MEDICAL: Please see full H and P. PROGNOSIS: The patient continues his treatment, continues to medications and follows up at the [facility]. Prognosis will improve, otherwise guarded. JOB# [id number]
== END 2017-02-26 11:40 | DRG 884 ==
LOC: GERO 14:03
PROVIDERS: ADMIT Psychiatry & Neurology Psychiatry; ATTEND Psychiatry & Neurology Psychiatry
DX: F03.90 Unspecified dementia, unspecified severity, without behavioral disturbance, psychotic disturbance, mood disturbance, and anxiety (principal); R45.851 Suicidal ideations; F29 Unspecified psychosis not due to a substance or known physiological condition; F39 Unspecified mood [affective] disorder
CPT/HCPCS: 36415-UA; 80053-TC; 82948-90; 84443-TC; 85025-TC; 90899; G0410; Z7610